=== PATIENT | male | born 1950 | race Caucasian/White ===

== ENCOUNTER 2017-12-02 05:47 | Outpatient (CLI) | payer MEDICARE ==
[~2017-12-02] VITALS: Ht 180.3 cm; Wt 113.4 kg
[2017-12-02] MEDS ORDERED: CLOP75TA28 PO (12:59)
[2017-12-02] MEDS ORDERED: TERA2CAP4 PO (12:59)
[2017-12-02] MEDS ORDERED: METO-333 PO (12:59)
[2017-12-02] MEDS ORDERED: CALC0.253 PO (12:59)
[2017-12-02] MEDS ORDERED: ERGO50006 PO (12:59)
[2017-12-02] MEDS ORDERED: ALLO300T2 PO (12:59)
[2017-12-02] MEDS ORDERED: AMLO10TA2 PO (12:59)
[2017-12-02] MEDS ORDERED: ATOR80TA76 PO (13:02)
[2017-12-02] MEDS ORDERED: INSU100V6 SQ (13:02)
[2017-12-02] MEDS ORDERED: INSU100V16 SQ (13:07)
== END 2017-12-02 14:39 ==
LOC: EDBD 05:47 → PREOP 05:47
PROVIDERS: ATTEND Surgery
DX: Z01.818 Encounter for other preprocedural examination (principal); N18.5 Chronic kidney disease, stage 5

== ENCOUNTER 2017-12-04 06:11 | Day surgery (SDC) | payer MEDICARE, OTHER ==
[~2017-12-04] VITALS: Ht 180.3 cm; Wt 113.4 kg
[~2017-12-04 06:11] MED LIST: ALLO300T2 PO; AMLO10TA2 PO; ATOR80TA76 PO; CALC0.253 PO; CLOP75TA28 PO; ERGO50006 PO; INSU100V16 SQ; INSU100V6 SQ; METO-333 PO; TERA2CAP4 PO
[2017-12-04] MEDS ORDERED: LACTATED RINGERS 1,000 ML IV PRN (06:36)
[2017-12-04] MEDS ORDERED: ROCURONIUM 50 MG/5 ML (ZEMURON) VIAL IV ONE (06:41)
[2017-12-04] MEDS ORDERED: proPOfol 200 MG/20 ML (DIPRIVAN) VIAL IV ONE (06:41)
[2017-12-04] MEDS ORDERED: LIDOCAINE PF 2% 5 ML (XYLOCAINE) VIAL ONE (06:41)
[2017-12-04] MEDS ORDERED: ONDANSETRON 4 MG/2 ML (SDV) Z0FRAN ONE (06:41)
[2017-12-04] MEDS ORDERED: SEVOFLURANE (ULTANE) 15 ML INHAL SOLN ONE ×6 (06:41→09:31)
[2017-12-04 06:45] VITALS: BP 157/71
[2017-12-04] MEDS ORDERED: fentaNYL INJECTION 100 MCG/2 ML AMP ONE (06:49)
[2017-12-04] MEDS ORDERED: MIDAZOLAM 2 MG/2 ML (VERSED) VIAL ONE (06:49)
[2017-12-04] MEDS ORDERED: NS IV 1000 ML 1,000 ML ONE (07:00)
[2017-12-04] MEDS ORDERED: DEXTROSE 50% 50 ML (IMS) SYR IV ONE (07:00)
[2017-12-04] MEDS ORDERED: ceFAZolin 2 GM/50 ML NS 50 ML IV ONE (07:15)
[2017-12-04] MEDS ORDERED: BUPIVACAINE 0.5% 30 ML (SENSORCAINE) VIAL ONE (07:16)
[2017-12-04] MEDS ORDERED: LIDOCAINE/EPI 1%-1:200,000 (XYLOCAINE) 10 ML VIAL ONE (07:16)
[2017-12-04] MEDS ORDERED: HEParin (CENTRAL IV FLUSH) 500 UNIT/5 ML SYR ONE (07:17)
--- NOTE | 2017-12-04 07:36 | Progress Note-Pre Operative ---
Pre-Operative Progress Note H&P Reviewed The H&P was reviewed, patient examined and no changes noted. Date Seen by Provider: Dec 04, 2017 Time Seen by Provider: 07:36 Date H&P Reviewed: Dec 04, 2017 Time H&P Reviewed: 07:36 Pre-Operative Diagnosis: malfunctioning peritoneal dialysis catheter, stage 5 kidney failure ROMARIO LYON DO Dec 04, 2017 07:36
[2017-12-04 07:42] LABS: CALCIUM 8.1 MG/DL (8.5-10.1); CREATININE SERUM 5.52 MG/DL (0.60-1.30); POTASSIUM 3.7 MMOL/L (3.6-5.0)
[2017-12-04] MEDS ORDERED: ASPI-999 PO (07:42)
[2017-12-04] MEDS ORDERED: NEOSTIGMINE (BLOXIVERZ ) 1 MG/1ML 10 ML VIAL ONE ×2 (09:51→10:16)
[2017-12-04] MEDS ORDERED: GLYCOPYRROLATE 0.2 MG/ML (ROBINUL) 2 ML VIAL ONE ×2 (09:51→10:17)
--- NOTE | 2017-12-04 10:13 | Progress Note-Post Operative ---
Post-Operative Progess Note Surgeon (s)/Financial Reporting Specialist (s) Surgeon ROMARIO LYON DO Financial Reporting Specialist: Dr. Rivas Pre-Operative Diagnosis malfunctioning peritoneal dialysis catheter, stage 5 kidney failure Post-Operative Diagnosis same Procedure & Operative Findings Date of Procedure 12/04/17 Procedure Performed/Findings laparoscopic removal malfunctioning peritoneal dialysis catheter, and placement of 62 cm curl catheter. Anesthesia Type general Estimated Blood Loss Estimated blood loss (mL): minimal Specimens/Packing Specimens Removed peritoneal mass ROMARIO LYON DO Dec 04, 2017 10:13
[2017-12-04] MEDS ORDERED: ACHD5005 PO (10:14)
--- NOTE | 2017-12-04 10:16 | Discharge Inst-Simple/Standard ---
Discharge Inst-Standard Discharge Medications New, Converted or Re-Newed RX: RX on Chart Patient Instructions/Follow Up Plan of Care/Instructions/FU: 2-3 weeks Home Activity as Tolerated: No Discharge Diet: Regular Diet Other Inst to Patient Follow up Appt: Make appointment for 2 weeks for staple removal. Instructions: No lifting greater than 10 pounds. No strenuous activity. May shower in 24 hours, no tub bath or soaking. Use incentive spirometer at home as directed. No Smoking May do half fills through catheter with max being 500 mL. May start full fill in 2 weeks. Skin/Wound Care: May remove bandages and replace daily and as needed. Symptoms to Report: Appetite Changes, Extremity Discoloration, Numbness/Tingling, Swelling Increased , Bleeding Excessive, Eyesight Changes, Pain Increased, Urine Color Change, Constipation(Persistent), Fever over 101 degree F, Pain/Pressure in chest, Urinating Difficulty, Cough Up/Vomit Blood, Heart Beat Irreg/Pounding, Pain/ Pressure in jaw, Vaginal Bleeding Increase, Cramps in feet or legs, Lightheadedness, Pain/Pressure in shoulder, Diarrhea(Persistent), Memory Changes Suddenly, Questions/Concerns, Weight gain consecutive days, Dizziness/ Fainting, Nausea/Vomiting, Shortness of Breath, Weight gain over 2 pounds If questions or concerns contact your physician Or seek help at emergency department. ROMARIO LYON DO Dec 04, 2017 10:16
[2017-12-04] MEDS ORDERED: morphine INJ 10 MG/ML 1ML (SYR OR VIAL) IVP PRN (10:30)
[2017-12-04] MEDS ORDERED: ONDANSETRON 4 MG/2 ML (SDV) Z0FRAN IVP PRN (10:30)
[2017-12-04 11:25] VITALS: BP 164/70
[2017-12-04] MEDS ORDERED: HYDROcodone/APAP 5 MG/325 MG (LORTAB) TAB ONE (11:34)
[2017-12-04 11:55] VITALS: BP 153/71
[2017-12-04] MEDS ORDERED: HYDROcodone/APAP 5 MG/325 MG (LORTAB) TAB PO ONE (12:30)
--- NOTE | 2017-12-05 21:02 | OPERATIVE REPORT ---
DATE OF SERVICE: 12/04/2017 PREOPERATIVE DIAGNOSES: Malfunctioning peritoneal dialysis catheter and stage V kidney failure. POSTOPERATIVE DIAGNOSES: Malfunctioning peritoneal dialysis catheter and stage V kidney failure. PROCEDURE: Laparoscopic removal of malfunctioning peritoneal dialysis catheter and placement of a 62 cm curl catheter. SURGEON: Romario Bhat DO SOLUTION COORDINATOR: Dr. Rivas, assisted in retraction, dissection and closure. ANESTHESIA: General. ESTIMATED BLOOD LOSS: Minimal. COMPLICATIONS: None. INDICATIONS: The patient is a 66-year-old male with stage V kidney disease. He has previously had a peritoneal dialysis catheter placed for peritoneal dialysis; however, this was unable to be used due to malfunction. They have tried multiple conservative management techniques in order to be able to use this; however, this has continued to be malfunctioning. The patient is needing dialysis. Therefore, I was asked to remove the existing catheter and place a new one. The patient has had recent cardiac stenting and is on Plavix, which I did discuss with his senior sales operations manager who has okayed the procedure, but would not allow him to come off the Plavix. The patient does understand the risks and benefits associated with the procedure and wished to proceed with the procedure. Consent was signed in the chart. DESCRIPTION OF PROCEDURE: The patient was taken to the operating suite, was prepped and draped in sterile fashion. Surgical pause was performed. A stab incision was made in the left upper quadrant and the abdomen was then begun to be insufflated. A 5 mm trocar was placed using a Visiport. The abdomen was then insufflated under direct visualization of the laparoscope. A 5 mm trocar was placed in the right upper quadrant. A large phlegmon was present in the left lower abdomen with significant adhesions up to the abdominal wall. Using a LigaSure, this was slowly began to be taken down. This was significantly adhered to this area. The site of insertion of the catheter was eventually located with the catheter present. At the insertion point, the catheter was cut and that part of the catheter was then removed from the abdominal space. The adhesions and omental fat that was slightly inflamed present there, was significantly adhered to this area. Therefore, it was left in place due to him being on Plavix and aspirin. The remainder of the catheter that was tunneled was then removed in its entirety through the scar of insertion point and also from the tunneled exit point. A second 5 mm trocar was placed in the right lower quadrant to assist with all the previous dissection. An 8 mm trocar was then placed to the right of the umbilicus and was tunneled down into the abdomen. A 62 cm curl peritoneal dialysis catheter was inserted and the trocar was removed. The catheter was then tunneled out through the right of the umbilicus. The first cuffs were one just being preperitoneal and the second being in the subcutaneous space near the incision. The catheter then had 300 mL of normal saline injected, which went without difficulty. It was also able to be drained without difficulty. The curl catheter was placed down in the right pelvis. The catheter was then hep-locked. The abdomen was then completely desufflated and the trocars were completely removed. A total of 300 mL of normal saline was left in the abdomen. The incisions were then stapled, closed and sterile bandages were applied. The patient tolerated the procedure well without any complications. He was taken to the recovery room in stable condition. Job ID: [id number] DocumentID: [id number] Dictated Date: 12/05/2017 09:35:04 [employer] Crm Developer Date: 12/05/2017 15:21:04 Dictated By: ROMARIO BHAT DO
== END 2017-12-04 12:15 | disposition home or self-care (01) ==
LOC: EDBD → SDC 06:11
PROVIDERS: ATTEND Surgery
DX: T85.611A Breakdown (mechanical) of intraperitoneal dialysis catheter, initial encounter (principal); N18.5 Chronic kidney disease, stage 5; I12.0 Hypertensive chronic kidney disease with stage 5 chronic kidney disease or end stage renal disease; E11.22 Type 2 diabetes mellitus with diabetic chronic kidney disease; Z79.02 Long term (current) use of antithrombotics/antiplatelets; Z79.82 Long term (current) use of aspirin; Z79.4 Long term (current) use of insulin; Z79.899 Other long term (current) drug therapy; Z87.891 Personal history of nicotine dependence
CPT/HCPCS: 36415; 80048; 82962; 87081